=== PATIENT | male | born 1980 | race Caucasian/White ===

== ENCOUNTER 2019-01-05 22:22 | Emergency (ER) | payer SELFPAY ==
[~2019-01-05] VITALS: Ht 182.9 cm; Wt 75.0 kg
[~2019-01-05 22:22] MED LIST: PERM60CR19 TP
[2019-01-05 22:25] VITALS: BP 127/69
[2019-01-06] MEDS ORDERED: LIDOcaine 1% 30ml preserv. free vial IJ ONE
[2019-01-06] MEDS ORDERED: acetaminophen 325mg tablet PO ONE
[2019-01-06] MEDS ORDERED: TETanus/Pertussis (Acell)/Diphther VAC/PF (Tdap-Adult) 0.5ml syringe IM ONE
== END 2019-01-06 02:09 | disposition home or self-care (01) ==
LOC: ER 22:22
DX: S63.591A Other specified sprain of right wrist, initial encounter (principal); S01.312A Laceration without foreign body of left ear, initial encounter; Z79.899 Other long term (current) drug therapy; Z59.0 Homelessness; Y04.0XXA Assault by unarmed brawl or fight, initial encounter; Y93.89 Activity, other specified; Y92.89 Other specified places as the place of occurrence of the external cause; Y99.8 Other external cause status
CPT/HCPCS: 12013; 73110; 73130; 90471; 90715; 99283; J2001

== ENCOUNTER 2019-01-11 11:06 | Emergency (ER) | payer SELFPAY ==
[~2019-01-11] VITALS: Ht 182.9 cm; Wt 72.7 kg
[2019-01-11] MEDS ORDERED: LIDOcaine 1% w/epiNEPHrine 1:200,000 30ml vial IM ONE (12:25)
[2019-01-11] MEDS ORDERED: MUPI22OI30 TOP (12:31)
[2019-01-11] MEDS ORDERED: SULF1TAB49 PO (13:01)
[2019-01-11] MEDS ORDERED: CEPH500C5 PO (13:01)
[2019-01-11 13:11] VITALS: BP 115/79
== END 2019-01-11 13:12 | disposition home or self-care (01) ==
LOC: ER 11:06
DX: L02.416 Cutaneous abscess of left lower limb (principal); L02.31 Cutaneous abscess of buttock; Z79.899 Other long term (current) drug therapy; Z59.0 Homelessness; Z60.2 Problems related to living alone
CPT/HCPCS: 10061; 99284